=== PATIENT | female | born 1970 | race Caucasian/White ===

== ENCOUNTER 2018-05-23 11:27 | Emergency (ER) | payer BC ==
[2018-05-23 11:44] VITALS: BP 130/79
--- NOTE | 2018-05-23 12:03 | UC ---
Eye Complaint HPI - HPI Summary HPI Summary: "something on L eye" for 3 days and worsening. notes L upper lid is red and swollen. no globe pain or discharge. no visual changes. uses contacts but stopped with this bump. - History of Current Complaint Chief Complaint: UCEye Stated Complaint: LFT EYE COMPLAINT Time Seen by Provider: 05/23/18 11:45 Hx Obtained From: Patient Hx Last Menstrual Period: 05/10/18 Onset/Duration: Gradual Onset Timing: Constant Pain Intensity: 0 Aggravating Factor(s): Nothing Associated Signs And Symptoms: Positive: Negative - Allergies/Home Medications Allergies/Adverse Reactions: Allergies Allergy/AdvReac Type Severity Reaction Status Date / Time Penicillins Allergy Intermediate Hives Verified 05/23/18 11:45 codeine Allergy Mild Nausea Verified 05/23/18 11:45 hay fever Allergy Congestion Uncoded 03/17/14 14:14 PMH/Surg Hx/FS Hx/Imm Hx - Additional Past Medical History Additional PMH: arthritis - Surgical History Surgical History: Yes Surgery Procedure, Year, and Place: ablation uterine, uterine sling ~2010, tubaligation - Family History Known Family History: Positive: Cardiac Disease - Social History Occupation: Employed Full-time Lives: With Family Alcohol Use: Occasionally Substance Use Type: None Smoking Status (MU): Never Smoked Tobacco - Immunization History Vaccination Up to Date: Yes Review of Systems Constitutional: Negative Skin: Negative Eyes: Other - L upper lid red and swollen ENT: Negative Respiratory: Negative Cardiovascular: Negative Gastrointestinal: Negative Genitourinary: Negative Motor: Negative Neurovascular: Negative Musculoskeletal: Arthralgia - chronic with no changes Neurological: Negative Psychological: Negative Is Patient Immunocompromised?: No All Other Systems Reviewed And Are Negative: Yes Physical Exam Triage Information Reviewed: Yes Appearance: Well-Appearing Vital Signs: Initial Vital Signs Temp 99.7 F 05/23/18 11:39 Pulse 88 05/23/18 11:39 Resp 18 05/23/18 11:39 BP 130/79 05/23/18 11:39 Pulse Ox 100 05/23/18 11:39 Vital Signs Reviewed: Yes Eyes: Positive: Other: - L upper lid with a bump and mild erythema. No orbital erythema. No auricular adenopathy. PERRL. EOMI. Conjunctiva clear. AC's clear. Lids everted and no FB's. ENT: Positive: Pharynx normal, TMs normal. Negative: Nasal congestion, Nasal drainage Neck: Positive: Supple, Nontender, No Lymphadenopathy Respiratory: Positive: Lungs clear, Normal breath sounds Cardiovascular: Positive: RRR, No Murmur Abdomen Description: Positive: Nontender, No Organomegaly, Soft Bowel Sounds: Positive: Present Musculoskeletal: Positive: ROM Intact Neurological: Positive: Alert Psychological: Positive: Age Appropriate Behavior Skin Exam: Normal Eye Complaint Course/Dx - Course Course Of Treatment: exam c/w chalzion and local superficial lid infection. pcn allery of hives only thus with tx with keflex and erythromycin oint to eye plus refer to opthamology. no concern for orbital cellulitis but s/s's d/s pt and to seek tx immediately if they evolve. also agrees to d/c contact use until cleared. - Differential Dx/Diagnosis Provider Diagnoses: Chalazion L upper lid with local superficial infection L upper lid Discharge - Sign-Out/Discharge Documenting (check all that apply): Patient Departure - Discharge Plan Condition: Stable Disposition: HOME Prescriptions: Cephalexin CAP* [Keflex CAP*] 500 mg PO TID #21 cap Erythromycin OPTH OINT* [Erythromycin 0.5% OPTH OINT*] 1 applic LEFT EYE TID 7 Days #1 ophth.oint Patient Education Materials: Cellulitis (ED), Stye (ED) Referrals: Asia Mason MD [Medical Doctor] - 2 Days Additional Instructions: NO CONTACT USE DIAGNOSIS: CHALAZION LEFT UPPER LID. SUPERFICIAL SKIN INFECTION LEFT UPPER LID - Billing Disposition and Condition Condition: STABLE Disposition: Home
== END 2018-05-23 12:24 | disposition home or self-care (01) ==
LOC: UCCORT 11:27
DX: H00.14 Chalazion left upper eyelid (principal); H00.024 Hordeolum internum left upper eyelid; Z88.0 Allergy status to penicillin; Z88.5 Allergy status to narcotic agent
CPT/HCPCS: 99212; G0463